=== PATIENT | male | born 1960 | race Caucasian/White ===

== ENCOUNTER 2018-03-20 10:20 | Emergency (ER) | payer BC ==
[2018-03-20 11:48] LABS: URINE BLOOD (Dip) POC Negative (NEGATIVE); URINE KETONES (Dip) POC Negative (NEGATIVE); URINE LEUKOCYTE EST (Dip) POC Negative (NEGATIVE); URINE NITRITE (Dip) POC Negative (NEGATIVE); URINE TOTAL PROTEIN POC Negative (NEGATIVE)
[2018-03-20] MEDS: predniSONE 20 MG TAB PO (11:48)
[2018-03-20] MEDS: KETOROLAC 30 MG INJ IM (11:48)
== END 2018-03-20 12:20 | disposition home or self-care (01) ==
LOC: FTE 10:20
DX: M54.42 Lumbago with sciatica, left side (principal); I10 Essential (primary) hypertension; E11.9 Type 2 diabetes mellitus without complications; Z79.82 Long term (current) use of aspirin; Z79.84 Long term (current) use of oral hypoglycemic drugs
CPT/HCPCS: 81003; 96372; 99284-25

== ENCOUNTER 2018-06-04 17:39 | Emergency (ER) | payer SELFPAY, BC | END 2018-06-04 20:12 | disposition left against medical advice (07) | LOC: FTE 17:39 | DX: Z53.21 Procedure and treatment not carried out due to patient leaving prior to being seen by health care provider (principal) ==

== ENCOUNTER 2018-10-19 09:36 | Day surgery (SDC) | payer BC ==
[2018-10-19] MEDS ORDERED: FENTAnyl 50 MCG/ML VIAL (12:07)
[2018-10-19] MEDS ORDERED: PROPOFOL 20 ML (12:07)
[2018-10-19] MEDS ORDERED: ONDANSETRON 4 MG INJ IV (12:30)
== END 2018-10-19 12:52 | disposition home or self-care (01) ==
LOC: GIL 09:36
DX: Z12.11 Encounter for screening for malignant neoplasm of colon (principal); Z86.010 Personal history of colon polyps; I10 Essential (primary) hypertension; E11.9 Type 2 diabetes mellitus without complications
CPT/HCPCS: 45378; 82962